=== PATIENT | female | born 1985 | race African-American/Black ===

== ENCOUNTER 2022-10-14 15:41 | Emergency (ER) | payer MEDICAID ==
[~2022-10-14] VITALS: Ht 160 cm; Wt 68.0 kg
[2022-10-14 16:50] LABS: BASOPHILS % 1.5 % (0.0-2.0); EOSINOPHILS % 2.9 % (0.0-5.0); HEMATOCRIT. 24.8 % (36.0-48.0); HEMOGLOBIN. 7.5 g/dL (12.0-16.0); LYMPHOCYTES % 34.1 % (20.0-50.0); MEAN CORPUSCULAR HEMOGLOBIN 20.1 pg (28.0-32.0); MEAN CORPUSCULAR VOLUME 66.7 fL (81.0-99.0); MEAN PLATELET VOLUME 9.1 fl (7.4-10.4); MONOCYTES % 9.4 % (2.0-8.0); NEUTROPHILS % 52.1 % (40.0-76.0); PLATELET 318 x1000/uL (130-400); RED BLOOD CELL COUNT 3.71 mill/uL (4.2-5.4); RED CELL DISTRIBUTION WIDTH 19.4 % (11.6-14.6)
[2022-10-14 16:53] LABS: CHLORIDE 101 mEq/L (98-107)
[2022-10-14 17:07] LABS: HCG SCREEN NEGATIVE
[2022-10-14 17:29] LABS: PLATELET ESTIMATE NORMAL
[2022-10-14] MEDS ORDERED: IBUPROFEN 600MG TABLET PO ONE (23:00)
[2022-10-14] MEDS ORDERED: SODIUM CHLORIDE 0.9% 1,000 ML IV ONE (23:45)
[2022-10-15 00:09] LABS: CLARITY URINE CLEAR (CLEAR); COLOR URINE ORANGE (YELLOW); KETONES URINE NEGATIVE (NEGATIVE); LEUKOCYTE ESTERASE URINE TRACE (NEGATIVE); NITRITE URINE NEGATIVE (NEGATIVE); OCCULT BLOOD URINE 3+ (NEGATIVE); PROTEIN URINE TRACE (NEGATIVE); SPECIFIC GRAVITY URINE 1.009 (1.005-1.030)
[2022-10-15 01:50] VITALS: BP 101/51
== END 2022-10-15 01:50 | disposition home or self-care (01) ==
LOC: ER 15:41
DX: N93.8 Other specified abnormal uterine and vaginal bleeding (principal); D64.9 Anemia, unspecified
CPT/HCPCS: 36415; 80053; 81003; 84703; 85025; 86850; 86900; 86901; 96360; 96361; 99285; J7030; Z7610